=== PATIENT | male | born 1995 | race Caucasian/White ===

== ENCOUNTER 2018-06-13 14:58 | Emergency (ER) | payer BC ==
[2018-06-13 15:29] LABS: Bilirubin Negative (Negative); Blood, Urine Small (Negative); Clarity TURBID (Clear); Glucose, Urine (Dipstick) Negative (Negative); Leukocyte Large (Negative); Nitrite Negative (Negative); Protein, Urine (Dipstick) 30 mg/dL (Neg-Trace); Specific Gravity, Urine 1.017 (1.002-1.036); Urobilinogen 0.2 mg/dL (0.2-1.0)
[2018-06-13 15:43] LABS: Bacteria/HPF None Seen HPF (None Seen); Hyaline Casts/LPF 0-3 HYALINE CAST LPF (0-3 Hyaline); Pathc Cast-AUWi Flag 0.53 (0-2.49); Squamous Epithelial None Seen HPF (0-3)
[2018-06-13] MEDS ORDERED: Azithromycin 250 MG TAB ONE (16:34)
[2018-06-13] MEDS ORDERED: cefTRIAXone\\ROCEPHIN 250 MG VIAL ONE (16:34)
[2018-06-13] MEDS ORDERED: Sterile Water 10 ML ONE (16:34)
[2018-06-17 04:17] LABS: Chlamydia by PCR Inconclusive (NotDetected); GC by PCR Inconclusive (NotDetected)
== END 2018-06-13 16:44 | disposition home or self-care (01) ==
LOC: ERS 14:58 → EDBD 14:58 → ERS 16:44
DX: R30.0 Dysuria (principal); F17.210 Nicotine dependence, cigarettes, uncomplicated
CPT/HCPCS: 81003; 81015; 87077; 87086; 87491; 87591; 96372; A4216; J0696

== ENCOUNTER 2018-08-12 15:41 | Emergency (ER) | payer BC ==
[2018-08-12 16:18] LABS: Bilirubin Negative (Negative); Blood, Urine Small (Negative); Clarity CLOUDY (Clear); Glucose, Urine (Dipstick) Negative (Negative); Leukocyte Large (Negative); Nitrite Negative (Negative); Protein, Urine (Dipstick) Negative (Neg-Trace); Specific Gravity, Urine 1.013 (1.002-1.036); Urobilinogen 0.2 mg/dL (0.2-1.0)
[2018-08-12 16:21] LABS: Bacteria/HPF None Seen HPF (None Seen); Hyaline Casts/LPF 0-3 HYALINE CAST LPF (0-3 Hyaline); Squamous Epithelial None Seen HPF (0-3)
[2018-08-12] MEDS ORDERED: Azithromycin 250 MG TAB ONE (17:19)
[2018-08-12] MEDS ORDERED: Lidocaine 1% PF 5 ML VIAL ONE (17:19)
[2018-08-12] MEDS ORDERED: cefTRIAXone\\ROCEPHIN 250 MG VIAL ONE (17:19)
[2018-08-14 23:51] LABS: Chlamydia by PCR Not Detected (NotDetected); GC by PCR DETECTED (NotDetected)
== END 2018-08-12 17:40 | disposition home or self-care (01) ==
LOC: ERS 15:41
DX: N34.1 Nonspecific urethritis (principal); F17.210 Nicotine dependence, cigarettes, uncomplicated
CPT/HCPCS: 81001; 87491; 87591; 96372; J0696; J2001

== ENCOUNTER 2019-06-17 16:02 | Emergency (ER) | payer BC | END 2019-06-17 16:50 | disposition home or self-care (01) | LOC: ERS 16:02 | DX: K03.81 Cracked tooth (principal); K02.9 Dental caries, unspecified; F17.210 Nicotine dependence, cigarettes, uncomplicated; Z71.6 Tobacco abuse counseling | CPT/HCPCS: 99406 ==